=== PATIENT | male | born 1995 | race Two or more races ===

== ENCOUNTER 2023-10-21 19:30 | Emergency (ER) | payer OTHER ==
[2023-10-21 19:39] VITALS: BP 124/71; O2SAT 100
[2023-10-21] MEDS ORDERED: PROPARACAINE 0.5% OPHTH DROPS 15 ML RIGHTEYE STA (20:06)
--- NOTE | 2023-10-21 20:16 | ED Physician Documentation ---
History of Present Illness - Stated complaint Stated Complaint: RT EYE IRRITATION - Chief complaint Chief Complaint: Heent - History obtained from History obtained from: Patient - Additonal information Additional information: 28yM p/w R eye discharge and irritation X 1 day. no contact lens or eye glasses use. vision intact. no known foreign body. no sick contacts PD PAST MEDICAL HISTORY - Past Medical History Past Medical History: No Cardiovascular: None Respiratory: None Neuro: None Endocrine/Autoimmune: None GI: None : None HEENT: None Psych: None Musculoskeletal: None Derm: None - Past Surgical History Past Surgical History: No - Present Medications Home Medications: Ambulatory Orders Medication Instructions Recorded Confirmed Ofloxacin 0.3% Ophth Drops 2 drops RIGHTEYE Q4H 7 Days #5 ml 10/21/23 [Ocuflox 0.3% Ophth Drops] - Allergies Allergies/Adverse Reactions: Allergies Allergy/AdvReac Type Severity Reaction Status Date / Time No Known Drug Allergies Allergy Verified 10/21/23 19:38 - Social History Does the pt smoke?: No Smoking Status: Never smoker Does the pt drink ETOH?: Yes Does the pt have substance abuse?: No - Immunizations Immunizations are current?: Yes - POLST Patient has POLST: No PD ED PE NORMAL - Vitals Vital signs reviewed: Yes - General General: Alert and oriented X 3, No acute distress, Well developed/nourished - HEENT HEENT: Atraumatic, PERRL, EOMI, Other (20/20 vision. fluorescein exam normal. no foreign body) Results - Vitals Vitals: Vital Signs - 24 hr 10/21/23 19:34 Temperature 36.8 C Heart Rate 79 Respiratory 16 Rate Blood Pressure 124/71 O2 Saturation 100 Oxygen O2 Source Room air PD Medical Decision Making - ED course ED course: 28yM p/w R eye irritation and discharge X 1 day. patient well appearing with 20/20 vision on exam, no foreign body on exam, fluorescein exam negative for abrasions. Eye drops sent to pharmacy. return precautions given. Departure - Departure Disposition: 01 Home, Self Care Clinical Impression: Conjunctivitis Condition: Stable Instructions: Conjunctivitis Prescriptions: Ofloxacin 0.3% Ophth Drops [Ocuflox 0.3% Ophth Drops] 2 drops RIGHTEYE Q4H 7 Days #5 ml Comments: You were seen in the emergency department for conjunctivitis (pink eye). Eye drops sent to [facility]. Please follow-up with your primary care provider and return to the emergency department if you have any new or worsening symptoms or other concerns. Forms: PCP List, Activity restrictions
== END 2023-10-21 20:19 | disposition home or self-care (01) ==
LOC: ED 19:30
DX: H10.9 Unspecified conjunctivitis (principal)
CPT/HCPCS: 99282; 99283